=== PATIENT | male | born 1960 | race Caucasian/White ===

== ENCOUNTER → 2023-04-29 | Outpatient (CLI) | payer BC | END | disposition home or self-care (01) | LOC: LAB 10:11 → LAB SHORT 10:11 | DX: R31.9 Hematuria, unspecified (principal) | CPT/HCPCS: 87086 ==

== ENCOUNTER 2023-10-13 07:03 | Day surgery (SDC) | payer BC ==
[~2023-10-13] VITALS: Ht 182.9 cm; Wt 85.0 kg
[2023-10-13] VITALS (14 sets, daily range): BP systolic 108–147; BP diastolic 54–88
[~2023-10-13 07:03] MED LIST: Lactated Ringer's 1,000 ML IV ONE; Lactated Ringer's 1,000 ML IV SCH
--- NOTE | 2023-10-13 07:32 | NUR ---
Ambulatory in Day Surgery History, Chart, Medications and Allergies reviewed before start of procedure. Pre-Op teaching done. Pt verbalizes understanding. Patient States Post-Procedure ride home has been arranged.
[2023-10-13] MEDS ORDERED: propofoL 20 ML IV ONE (07:57)
--- NOTE | 2023-10-13 08:01 | NUR ---
10/13/23 0801 Zelda Hood HISTORY, CHART, MEDICATIONS AND ALLERGIES REVIEWED BEFORE START OF PROCEDURE. PATIENT CONFIRMS NPO STATUS AND AGREES WITH SCHEDULED PROCEDURE. 3-LEAD EKG REVIEWED WITH PHYSICIAN PRIOR TO START OF PROCEDURE. MONITOR INTACT WITH CONTINUOUS PULSE OXIMETRY,CAPNOGRAPHY, 3-LEAD EKG, INTERMITTENT BP. SUPPLEMENTAL O2 TO BE TITRATED THROUGHOUT PROCEDURE TO MAINTAIN O2 SATURATION ABOVE 90%. PATIENT DETERMINED TO BE ASA APPROPRIATE FOR PROPOFOL SEDATION PRIOR TO START OF PROCEDURE BY .MALLAMPATI CLASS 2 AIRWAY: COMPLETE VISUALIZATION OF THE UVULA
--- NOTE | 2023-10-13 08:22 | NUR ---
PT TO DAY SURGERY STEP DOWN FROM COLONOSCOPY; BEDSIDE REPORT RECEIVED. PT IS AWAKE, ALERT AND ORIENTED; ABLE TO MOVE SELF IN BED. NO COMPLAINTS. PT AT BEDSIDE.
--- NOTE | 2023-10-13 08:42 | NUR ---
PT TOLERATING PO FLUIDS Discharge instructions reviewed with patient. Patient verbalizes understanding. Copy given to patient to take home. Patient States Post-Procedure ride home has been arranged.
--- NOTE | 2023-10-13 08:52 | NUR ---
Discharged via wheelchair to private car for ride home.
== END 2023-10-13 08:53 | disposition home or self-care (01) ==
LOC: ORSCMMR 07:03 → ORD 08:00 → ORSCMMR 08:53
PROVIDERS: Internal Medicine Gastroenterology
PROC: 0DBP8ZX Excision of Rectum, Via Natural or Artificial Opening Endoscopic, Diagnostic (ICD-10-PCS; principal; 2023-10-13 08:00)
PROC: 0DBM8ZX Excision of Descending Colon, Via Natural or Artificial Opening Endoscopic, Diagnostic (ICD-10-PCS; principal; 2023-10-13 08:00)
DX: Z12.11 Encounter for screening for malignant neoplasm of colon (principal); K63.5 Polyp of colon; K62.1 Rectal polyp; K57.30 Diverticulosis of large intestine without perforation or abscess without bleeding
CPT/HCPCS: 88305; J2704; J7120